=== PATIENT | male | born 2005 | race Caucasian/White ===

== ENCOUNTER 2023-03-26 10:18 | Outpatient (CLI) | payer BC, SELFPAY ==
--- NOTE | 2023-03-26 10:15 | MR_ITS ---
[facility] [address] [facility] [address] Phone:?[phone] Fax:?[phone] Referring Physician Information: Sebastian Saavedra PA-C [address] [facility] [address] Phone:?[phone] Fax:?[phone] Patient:?Juaquin Kruger D.O.B:?2005 Sex:?Male Phone:?[phone] [facility] MRN:?[id number] Exam Date:?03/26/2023 ? EXAM: MRI of the RIGHT SHOULDER, without contrast CLINICAL: Right shoulder pain. COMPARISONS: X-rays dated 06/05/2022. TECHNICAL: MRI sequences of the right shoulder: Axials: PD, PDFS Coronals: PD, T2FS Sagittals: PDFS, T2 SEDATION: None. CONTRAST: None. FINDINGS: Evaluation of the axial sequences is limited by motion artifact. Rotator cuff: Supraspinatus/Infraspinatus: No tendinosis, tear or atrophy. Teres minor: No tendinosis, tear or atrophy. Subscapularis: No tendinosis, tear or atrophy. Bursae: Subacromial-subdeltoid: No significant bursal fluid. Subcoracoid: No significant bursal fluid. Coracoacromial arch: Acromion morphology: Type II. No os acromiale. Acromiohumeral space: Within normal limits. Coracohumeral space: Within normal limits. Biceps tendon, long head: Intraarticular and extraarticular segments intact without rupture, tendinopathy or displacement. Glenohumeral joint: Physiologic volume of joint fluid. Articular cartilage: Evaluation is relatively limited. There is however evidence of high-grade chondral loss involving the glenoid and inferomedial humeral head. Capsule: No convincing evidence of capsular thickening or injury. Labrum: Evaluation is limited without intra-articular contrast and due to motion artifact. Question minimal tearing of the superior labrum posterior to the biceps anchor on coronal series 4 images 14-15. There is ill-defined tearing of the anteroinferior and inferior labrum. No perilabral cyst identified. Bones: Irregularity of the anteroinferior glenoid consistent with sequelae of osseous Bankart fracture with associated adjacent bone marrow edema. There is mild Hill- Sachs impaction injury/fracture seen to involve the peripheral posterolateral humeral head with associated adjacent bone marrow edema. No current glenohumeral dislocation. Acromioclavicular joint: No acute injury, arthropathy, or inferior hypertrophy. IMPRESSION: 1. Sequelae of anterior glenohumeral dislocation injury as above including a Hill-Sachs impaction injury/fracture involving the humeral head and osseous Bankart fracture involving the anteroinferior glenoid. There is tearing of the anteroinferior and inferior labrum. 2. Question minimal tearing of the superior labrum posterior to the biceps anchor. 3. Apparent high-grade chondral loss involving the glenoid and inferomedial humeral head. 4. Intact long head biceps tendon. JCZ Electronically signed on 03/26/2023 12:47:00 PM by Denny Donahue D.O.
== END 2023-03-26 10:19 | disposition home or self-care (01) ==
PROVIDERS: PCP Physician Assistant Medical; Visit Provider Physician Assistant Medical
DX: M25.511 Pain in right shoulder (principal); S43.014A Anterior dislocation of right humerus, initial encounter; S43.431A Superior glenoid labrum lesion of right shoulder, initial encounter
CPT/HCPCS: 73221

== ENCOUNTER 2023-08-19 13:00 | Outpatient (RCR) | payer BC, SELFPAY | END 2023-12-17 23:59 | disposition home or self-care (01) | PROVIDERS: PCP Physician Assistant Medical; Visit Provider Orthopaedic Surgery Sports Medicine | DX: M24.411 Recurrent dislocation, right shoulder (principal); M21.821 Other specified acquired deformities of right upper arm; M24.111 Other articular cartilage disorders, right shoulder; S43.431A Superior glenoid labrum lesion of right shoulder, initial encounter; M25.511 Pain in right shoulder; G89.29 Other chronic pain; Z98.890 Other specified postprocedural states; Z51.89 Encounter for other specified aftercare | CPT/HCPCS: 97110; 97140; 97161; 97530 ==